=== PATIENT | female | born 1995 | race Caucasian/White ===

== ENCOUNTER 2021-03-28 13:19 | Outpatient (CLI) | payer OTHER | END 2021-03-28 13:42 | disposition home or self-care (01) | LOC: SONOGRAMA 13:19 | PROVIDERS: ATTEND Surgery | DX: D24.2 Benign neoplasm of left breast (principal); N60.11 Diffuse cystic mastopathy of right breast; N60.12 Diffuse cystic mastopathy of left breast ==

== ENCOUNTER 2021-05-02 06:37 | Day surgery (SDC) | payer OTHER | END 2021-05-02 17:20 | disposition home or self-care (01) | LOC: CIR.AMB 06:37 | PROVIDERS: ATTEND Surgery | DX: D24.2 Benign neoplasm of left breast (principal); Z20.822 Contact with and (suspected) exposure to COVID-19 ==